=== PATIENT | male | born 1965 | race Caucasian/White ===

== ENCOUNTER 2018-07-27 12:26 | Day surgery (SDC) | payer BC ==
[~2018-07-27] VITALS: Ht 182.9 cm; Wt 106.8 kg
--- NOTE | ~2018-07-27 | OP ---
PATIENT NAME: LONDON CASTELLANOS MEDICAL RECORD: [id number] :61 LOCATION:D.OPS ADMISSION DATE: SURGEON: LONDON SEVILLA MD DATE OF OPERATION: 07/27/2018 PREOPERATIVE DIAGNOSES: 1. Ascending colon polyp, complex. 2. Rectal polyp, complex. POSTOPERATIVE DIAGNOSES: 1. Ascending colon polyp, complex. 2. Rectal polyp, complex. 3. Inability to completely excise the rectal polyp. 4. Necessity for clips for hemorrhage control of the rectal polyp. 5. Secondary 5-mm sessile polyp on a fold which appeared to be adenomatous. PROCEDURES: 1. Total colonoscopy to cecum. 2. Polypectomy utilizing the endoscopic mucosal resection technique of the ascending colon polyp with placement of 6 clips in a row for closure of the excised defect. 3. Piecemeal snare partial polypectomy of a low rectal polyp with placement of 1 endoscopic clip for hemostasis as well as utilization of the argon plasma solderer barrel ribs. 4. Hot biopsy forceps polypectomy times 1. SURGEON: London Sevilla MD GENERAL MILLING SUPERINTENDENT: None. BLOOD LOSS: 50 cc. ANESTHESIA: IV sedation. COMPLICATIONS: None. OPERATIVE COURSE: The patient was conveyed to the endoscopy suite electively on 07/27/2018. IV sedation was induced by the anesthesia staff. The patient was placed in the [place] position. A digital rectal examination was performed. The prostate was symmetric and without nodules. A colonoscope was inserted through the anus. It was easily advanced to the cecum. The prep was adequate. The patient had mild left-sided diverticulosis. Two tattoos were noted in the ascending colon. Between these 2 tattoos, there was a complex polyp that was noted. I advanced a sclerotherapy needle. A submucosal injection of epinephrine was undertaken. There was a good lift to the polyp. I then advanced a sclerotherapy needle again in 4 quadrants around the polyp. I performed a submucosal injection of Eleview and there was a good lift to the polyp. I was unable to advance an endoscopic snare and utilizing the coagulation setting in the cut setting, I was able to perform an excisional biopsy of this polyp. The tissue around the excised defect was cauterized with the argon plasma solderer barrel ribs utilizing the right colon setting in the forced mode. I was concerned that there could be a post-polypectomy syndrome or a delayed OPERATIVE REPORT [id number] LONDON CASTELLANOS perforation due to the size of the excised defect and due to the depth that I had to go in order to excise the polyp. For this reason, I laid down a set of 6 endoscopic clips for closure of this mucosal defect. I then continued to withdraw the endoscope. The pullback was greater than a 35 minute pullback. Another small polyp was noted and this was removed utilizing the hot biopsy forceps polypectomy technique. In the rectum, a large rectal polyp was noted. This was a sessile polyp that was multilobed. I injected epinephrine into the base of the polyp and part of the polyp did lift away from the rectal wall. Utilizing the snare, I used the coagulation setting and the cut setting to snare off portions of the polyp. The snared portions were gathered up in an endoscopic retrieval net and were withdrawn out through the anus. I readvanced the colonoscope. I placed an endoscopic clip for hemostasis after the argon plasma solderer barrel ribs had been utilized with a suboptimal effect for hemostasis. There was no further bleeding. The endoscope was withdrawn under direct vision. The patient is going to be at risk for post-polypectomy syndrome and for this reason, he is going to be dismissed home with a prescription for Flagyl 500 mg #14. I will see him in my office in 2-3 weeks. At that time, we will review the results of the biopsies. Additionally, I will set him up for a transanal excision of this low rectal mass as only about a half of polyp was removed with this piecemeal snare polypectomy. The mass is low enough where I should be able to perform an excisional biopsy with the patient in the lithotomy position. TRANSINT:[id number] Voice Confirmation ID: [id number] DOCUMENT ID: [id number] LONDON SEVILLA MD at 1544 CC: MIRLANDE MANSFIELD and AZUCENA METZGER DO [id number] DICTATION DATE: 07/27/18 1703 [facility] CYLINDER FLANGER: 07/27/18 9387 [facility] 07/27/18 [facility] [address] [place] [address]
[2018-07-27] MEDS ORDERED: NORCO 10-325 TA1 TAB PO (13:39)
[2018-07-27] MEDS ORDERED: ZOCOR20 MG PO (13:39)
[2018-07-27 13:46] VITALS: BP 138/77; Ht 182.9 cm; Wt 106.8 kg
== END 2018-07-27 17:03 | disposition home or self-care (01) ==
LOC: D.OPS 12:26
DX: D12.2 Benign neoplasm of ascending colon (principal); D12.0 Benign neoplasm of cecum; D12.4 Benign neoplasm of descending colon; D12.8 Benign neoplasm of rectum; Z01.812 Encounter for preprocedural laboratory examination

== ENCOUNTER 2018-09-03 07:06 | Day surgery (SDC) | payer OTHER ==
[~2018-09-03] VITALS: Ht 185.4 cm; Wt 109.3 kg
[~2018-09-03 07:06] MED LIST: NORCO 10-325 TA1 TAB PO; ZOCOR20 MG PO
[2018-09-03 07:32] VITALS: BP 130/79; Ht 185.4 cm; Wt 109.3 kg
--- NOTE | 2018-09-03 12:00 | NUR ---
REC'D FROM RR. FAMILY AT BEDSIDE. RX CALLED INTO [facility]. PT RELATES HE NEEDS TO USE THE BATHROOM AND HE TOLD THE RR NURSE HE COULDN'T USE A BEDPAN. ASSISTED TO BATHROOM WITH NO BM OR URINE. EXPLAINED TO PT HE WILL FILL PRESSURE AND THE URGE TO HAVE A BM DT GELFOAM PACKING. COFFEE AND FL TRAY BROUGHT TO [T.
--- NOTE | 2018-09-03 12:30 | NUR ---
TOLERATED DIET. UP TO BATHROOM WITH NO RESULTS. CRANBERRY JUICE AND APPLE JUICE BROUGHT TO PT. FAMILY AT BEDSIDE.
--- NOTE | 2018-09-03 13:30 | NUR ---
up to bathroom. RELATED SOME STOOL BUT NO URINE AT THIS TIME. RATES PAIN 5/10 BUT RELATES DOES NOT NEED ANYTHING FOR PAIN. FAMILY AT BEDSIDE.
--- NOTE | 2018-09-03 14:10 | NUR ---
UP TO BATHROOM. VOIDED. IV DC'D WITH CATHETER INTACT.
--- NOTE | 2018-09-03 14:20 | NUR ---
WRITTEN AND VERBAL DC INST. GIVEN TO PT ALONG WITH RX. VERBALIZED UNDERSTANDING.
--- NOTE | 2018-09-03 14:30 | NUR ---
DC'D HOME WITH FAMILY VIA PRIVATE VEHICLE. TAKEN TO VEHICLE VIA WC. STABLE AT TIME OF DC.
--- NOTE | 2018-09-07 16:44 | OP ---
PATIENT NAME: LONDON CASTELLANOS MEDICAL RECORD: [id number] :61 LOCATION:D.OPS ADMISSION DATE: SURGEON: LONDON SEVILLA MD DATE OF OPERATION: 09/03/2018 PREOPERATIVE DIAGNOSES: Low rectal mass that was endoscopically unresectable and may be a full thickness neoplasm. POSTOPERATIVE DIAGNOSES: Low rectal mass that was endoscopically unresectable and may be a full thickness neoplasm. PROCEDURE: Transanal excision of rectal mass. SURGEON: London Sevilla MD WHEELABRATOR OPERATOR: None. BLOOD LOSS: Less than 50 cc. ANESTHESIA: General. COMPLICATIONS: None. I have personally reviewed my endoscopic report. I have personally reviewed the endoscopic photos. The risks, possible complications and alternatives to the procedure were discussed with the patient. He elects to proceed. OPERATIVE COURSE: The patient was conveyed to the operating room electively on 09/03/2018. General anesthesia was induced by the anesthesia staff. The patient was placed in the lithotomy position with the buttocks taped laterally. The anus and perianal areas were sterilely prepped and draped. Lubricated U-shaped anal retractors were placed. The lesion was easily identifiable and was at 10 o'clock. I placed 0 Vicryl sutures on UR-6 needles on either side of the mass for better traction. I wanted to elevate the mass as well as to stabilize it and for this reason, I injected Eleview at 4 corners around the mass. This was a submucosal injection through a spinal needle. I then excised the mass with electrocautery. There appeared to be a margin around the mass and this appeared to be a full thickness excision. Hemostasis was achieved with electrocautery. Then, a 2-layer closure was performed. The first layer was a running locking 0 Vicryl suture and then I imbricated this with a running horizontal mattress suture. Gelfoam was applied within the anus and the rectum. This was after I determined that there was still an adequate lumen for which stool could pass. A local anesthetic and a steroid preparation were used to infiltrate the perianal tissues. A topical anesthetic ointment was applied to the external hemorrhoids. The patient was then extubated and conveyed to post-anesthesia care unit where he was in stable condition. I will see him in the office in 2-3 weeks to discuss the pathology with him. Depending on whether there is invasion or not, this will determine our next course of action. OPERATIVE REPORT [id number] LONDON CASTELLANOS TRANSINT:[id number] Voice Confirmation ID: [id number] DOCUMENT ID: [id number] LONDON SEVILLA MD at 1644 CC: MIRLANDE MANSFIELD and AZUCENA METZGER DO [id number] DICTATION DATE: 09/03/18 170 [facility]: 09/03/18 2153 [facility] [place] 09/03/18 [place] [id number]
== END 2018-09-03 14:30 | disposition home or self-care (01) ==
LOC: D.OPS 07:06 → D.PAN 10:45 → D.OPS 10:45
DX: D12.9 Benign neoplasm of anus and anal canal (principal); Z01.812 Encounter for preprocedural laboratory examination